=== PATIENT | female | born 1955 | race Two or more races ===

== ENCOUNTER 2017-09-06 03:03 | Emergency (ER) | payer OTHER ==
[~2017-09-06] VITALS: Ht 167.6 cm; Wt 120.2 kg
[~2017-09-06 03:03] MED LIST: ATENOLOL25 MG; NEURONTIN600 MG
[2017-09-06] MEDS ORDERED: PROTONIX40 MG PO (03:55)
== END 2017-09-06 14:49 | disposition home or self-care (01) ==
LOC: ER 03:03
DX: K21.9 Gastro-esophageal reflux disease without esophagitis (principal)

== ENCOUNTER 2021-08-09 10:18 | Emergency (ER) | payer OTHER ==
[~2021-08-09] VITALS: Ht 167.6 cm; Wt 110.7 kg
[~2021-08-09 10:18] MED LIST changes: +PROTONIX40 MG PO
[2021-08-09] MEDS ORDERED: HYDROCHLOROTH12.5 MG PO (10:27)
[2021-08-09] MEDS ORDERED: COZAAR25 MG PO (10:27)
[2021-08-09] MEDS ORDERED: PEPCID AC20 MG PO (15:56)
[2021-08-09] MEDS ORDERED: METRONIDAZOLE500 MG PO (15:56)
[2021-08-09] MEDS ORDERED: CIPRO500 MG PO (15:56)
== END 2021-08-09 18:10 | disposition home or self-care (01) ==
LOC: ER 10:18
DX: K57.92 Diverticulitis of intestine, part unspecified, without perforation or abscess without bleeding (principal); R10.84 Generalized abdominal pain; N28.1 Cyst of kidney, acquired; I10 Essential (primary) hypertension; R19.7 Diarrhea, unspecified; Z90.49 Acquired absence of other specified parts of digestive tract; Z90.710 Acquired absence of both cervix and uterus; Z88.0 Allergy status to penicillin

== ENCOUNTER 2021-08-14 05:15 | Emergency (ER) | payer OTHER ==
[~2021-08-14] VITALS: Ht 167.6 cm; Wt 108.4 kg
[~2021-08-14 05:15] MED LIST changes: +CIPRO500 MG PO; +COZAAR25 MG PO; +HYDROCHLOROTH12.5 MG PO; +METRONIDAZOLE500 MG PO; +PEPCID AC20 MG PO
[2021-08-14] MEDS ORDERED: LEVSIN0.125 MG PO (08:02)
[2021-08-14] MEDS ORDERED: PEPCID AC20 MG PO (08:02)
[2021-08-14] MEDS ORDERED: ANALPRAM HC 1%30 GM TOP (08:02)
== END 2021-08-14 08:22 | disposition home or self-care (01) ==
LOC: ER 05:15
DX: K62.5 Hemorrhage of anus and rectum (principal); E87.6 Hypokalemia; K57.92 Diverticulitis of intestine, part unspecified, without perforation or abscess without bleeding; Z88.0 Allergy status to penicillin